=== PATIENT | female | born 1975 | race Caucasian/White ===

== ENCOUNTER 2017-07-15 16:48 | Emergency (ER) | payer SELFPAY ==
--- NOTE | 2017-07-15 | CT_ITS ---
CT head/brain wo con HISTORY: ITS.REASON: SYNCOPE,HEADACHES ORDERING PHYSICIAN: Kayleen Kulkarni MD PATIENT AGE: 42 years COMPARISON: 03/19/2014 TECHNIQUE: Axial images obtained without contrast. Brain and bone windows reviewed. FINDINGS: No midline shift, mass effect, intracranial hemorrhage, hydrocephalus, or extra-axial fluid collection is evident. The calvarium has an unremarkable appearance. No mastoid effusion. No sinus air-fluid levels.. Mild mucosal thickening of the sphenoid sinus noted posteriorly IMPRESSION: No acute intracranial findings.
[2017-07-15 16:49] VITALS: BP 106/69; PULSE 68; RESP 22; TEMP 36.8; O2SAT 93; BMI 22.7
--- NOTE | 2017-07-15 17:01 | XR_ITS ---
XR chest 2V HISTORY: ITS.REASON: SYNCOPE ORDERING PHYSICIAN: Kayleen Kulkarni MD PATIENT AGE: 42 years COMPARISON: 03/04/2017 FINDINGS: The cardiomediastinal silhouette and pulmonary vascularity are within normal limits. The lungs are clear without infiltrates, suspicious nodules, or pleural effusions. There is mild biapical pleural thickening with biapical fibronodular changes which are stable No acute bony abnormalities. IMPRESSION: No change with no acute finding
[2017-07-15 17:14] LABS: Basophils # 0.1 K/mm3 (0-0.2); Basophils % 0.7 % (0.1-2.0); Eosinophils # 0.2 K/mm3 (0.0-0.4); Eosinophils % 2.4 % (0.1-12.0); Hematocrit 42.4 % (37.0-47.0); Hemoglobin 14.1 g/dL (12.2-16.2); Lymphocytes # 3.3 K/mm3 (0.7-4.5); Lymphocytes % 43.2 K/mm3 (10-50); Mean Corpuscular HGB Conc 33.2 g/dL (31.8-35.4); Mean Corpuscular Hemoglobin 31.1 pg (27.0-31.2); Mean Corpuscular Volume 93.6 fl (81-99); Mean Platelet Volume 7.8 fl (7.4-10.4); Monocytes # 0.3 K/mm3 (0.1-1.0); Monocytes % 4.1 % (1.7-9.3); Neutrophils # 3.7 K/mm3 (1.8-7.8); Neutrophils % 49.6 % (37.0-80.0); Platelet Count 298 K/mm3 (142-424); Red Blood Count 4.53 M/mm3 (4.20-5.40); Red Cell Distribution Width 12.6 % (11.5-17.5); White Blood Count 7.5 K/mm3 (4.8-10.8)
[2017-07-15 17:24] LABS: Microscopic, Urine URINE MICROSCOPIC (MICROSCOPIC)
[2017-07-15 17:27] LABS: Appearance,Urine CLEAR (Clear); Bilirubin,Urine Negative (Negative); Blood, Urine TRACE-L (Negative); Color,Urine YELLOW (Yellow); Glucose,Urine (UA) Negative (Negative); Ketones,Urine Negative (Negative); Leukocyte Esterase,Urine TRACE (Negative); Nitrate,Urine Negative (Negative); PH,Urine 6.5 (5.0-8.5); Protein,Urine Negative (Negative); Urobilinogen,Urine 0.2 EU/dl (0.2)
[2017-07-15 17:36] LABS: Alanine Aminotransferase 21 U/L (12-78); Albumin Level 4.5 gm/dL (3.4-5.0); Albumin/Globulin Ratio 1.2 (1.1-1.8); Alkaline Phosphatase 111 U/L (46-116); Anion Gap 10.4 mEq/L (5-15); Aspartate Amino Transferase 12 U/L (15-37); Bilirubin,Total 0.5 mg/dL (0.2-1.0); Blood Urea Nitrogen 9 mg/dL (7-18); Calcium 9.2 mg/dL (8.5-10.1); Carbon Dioxide 27 mmol/L (21.0-32.0); Chloride 104 mmol/L (98-107); Creatinine Clearance Estimated 99 mg/ml (0-300); Creatinine,Serum 0.75 mg/dL (0.55-1.02); Estimated Glomerular Filt Rate > 60 ml/min (>60); GFR (African American) > 60 ML/MIN (>60); Globulin 3.8 gm/dl (1.3-3.2); Glucose 101 mg/dL (74-106); Potassium 3.4 mmoL/L (3.5-5.1); Sodium 138 mmol/L (136-145); Total Protein,Serum 8.3 gm/dL (6.4-8.2); Troponin I < 0.02 ng/ml (0.00-0.06)
[2017-07-15 17:41] LABS: Urine Pregnancy, HCG Qual. Negative (Negative)
--- NOTE | 2017-07-15 18:39 | HMH.EDGENADL ---
ED Disposition Clinical Impression: Cephalgia Disposition: Home, Self-Care Condition on Discharge: Good Instructions: Tension Headache (Alternative Therapy), DI for Muscle Weakness Additional Instructions: Advil, Tylenol as needed, see your family doctor in one to two days for recheck; flu swab negative but you likely have a viral syndrome in addition to your classic headache today. Referrals: Provider,Referral, [Primary Care Provider] - - Critical Care Critical Care Time: No Attestation: On 07/15/17, the high probability of a clinically significant, sudden or life threatening deterioration of the following system(s) required my full and direct attention, intervention and personal management. The time I documented below is in addition to time spent performing reported procedures but includes the following listed in this critical care notation. Medical Decision Making Vital Signs: 07/15/17 16:49 Temperature 98.3 F Temperature Source Oral Pulse Rate [Right Radial] 68 Respiratory Rate 22 Blood Pressure [Right Arm] 106/69 Blood Pressure Mean [Right Arm] 81 Blood Pressure Source [Right Arm] Automatic Cuff Blood Pressure Position [Right Arm] Supine 02 Sat by Pulse Oximetry 93 L Oxygen Delivery Method Room Air - Lab Data Lab results reviewed: Yes: I reviewed the patient's lab results. Lab Results 07/15/17 16:32: Sodium 138, Potassium 3.4 L, Chloride 104, Carbon Dioxide 27, Anion Gap 10.4, BUN 9, Creatinine 0.75, Estimated Creat Clear 99, Estimated GFR > 60, Est GFR ( Amer) > 60, Glucose 101, Calcium 9.2, Total Bilirubin 0.5, AST 12 L, ALT 21, Alkaline Phosphatase 111, Troponin I < 0.02, Total Protein 8.3 H, Albumin 4.5, Globulin 3.8 H, Albumin/Globulin Ratio 1.2 07/15/17 16:32: WBC 7.5, RBC 4.53, Hgb 14.1, Hct 42.4, MCV 93.6, MCH 31.1, MCHC 33.2, RDW 12.6, Plt Count 298, MPV 7.8, Neut % (Auto) 49.6, Lymph % (Auto) 43.2, Wheeler % (Auto) 4.1, Eos % (Auto) 2.4, Baso % (Auto) 0.7, Neut # (Auto) 3.7, Lymph # (Auto) 3.3, Wheeler # (Auto) 0.3, Eos # (Auto) 0.2, Baso # (Auto) 0.1 07/15/17 17:20: Urine Color Yellow, Urine Appearance Clear, Urine pH 6.5, Ur Specific [place] 1.010, Urine Protein Negative, Urine Glucose (UA) Negative, Urine Ketones Negative, Urine Blood Trace-l, Urine Nitrate Negative, Urine Bilirubin Negative, Urine Urobilinogen 0.2, Ur Leukocyte Esterase Trace 07/15/17 17:20: Urine HCG, Qual Negative 07/15/17 18:30: Influenza Type A Ag Negative, Influenza Type B Ag Negative Result diagrams: 07/15/17 16:32 07/15/17 16:32 Orders (Tests/Meds): ED MEDICATIONS Discontinued Medications Generic Name Dose Route Start Last Admin Trade Name Freq PRN Reason Stop Dose Admin Acetaminophen 1,000 mg 07/15/17 19:11 Tylenol 500mg Tablet PO 07/15/17 19:12 ONCE ONE ORDERS Category Date Time Status Urinalysis and Microscopic Stat Lab 07/15/17 17:20 Results 12-lead EKG Request [ECG Request by /Suraj] Stat Y 07/15/17 17:01 Ordered ECG Request by /Suraj Stat Y 07/15/17 18:34 Stop Req - Radiology Data #1 Image(s): Chest Image Reviewed: Yes I reviewed the patient's radiology results, Yes I have reviewed radiologist's interpretation Preliminary Findings: Normal/NAD, No Infiltrates Seen, Normal Lung Inflation Delvin - CT Data CT Scan: Head Time Received: 19:[address] Reviewed: Yes: I have reviewed the patient's CT results, I have viewed the radiologist's interpretation Preliminary Findings: Normal/NAD - ECG Data Tracing #1 NSR 65 no ectopy normal intervals no hypertrophy - Herbert Inquiry Pt receiving controlled substance: No General Adult HPI - General Chief complaint: Weakness Stated complaint: SYNCOPAL,POSSIBLE FLU Time Seen by Provider: 07/15/17 18:39 Mode of Arrival: EMS Limitations: No Limitations Description of Symptoms (Recalled from ER Triage Doc. by RN): HEADACHES AND SYNCOPE; THINKS SHE HAS THE FLU - History of Present Illness HPI narrative:
--- NOTE | 2017-07-15 18:46 | ED_ITS ---
ED Disposition Clinical Impression: Cephalgia Disposition: Home, Self-Care Condition on Discharge: Good Instructions: Tension Headache (Alternative Therapy), DI for Muscle Weakness Additional Instructions: Advil, Tylenol as needed, see your family doctor in one to two days for recheck ; flu swab negative but you likely have a viral syndrome in addition to your classic headache today. Referrals: Provider,Referral, [Primary Care Provider] - - Critical Care Critical Care Time: No Attestation: On 07/15/17, the high probability of a clinically significant, sudden or life threatening deterioration of the following system(s) required my full and direct attention, intervention and personal management. The time I documented below is in addition to time spent performing reported procedures but includes the following listed in this critical care notation. Medical Decision Making Vital Signs: 07/15/17 16:49 Temperature 98.3 F Temperature Source Oral Pulse Rate [Right Radial] 68 Respiratory Rate 22 Blood Pressure [Right Arm] 106/69 Blood Pressure Mean [Right Arm] 81 Blood Pressure Source [Right Arm] Automatic Cuff Blood Pressure Position [Right Arm] Supine 02 Sat by Pulse Oximetry 93 L Oxygen Delivery Method Room Air - Lab Data Lab results reviewed: Yes: I reviewed the patient's lab results. Lab Results 07/15/17 16:32: Sodium 138, Potassium 3.4 L, Chloride 104, Carbon Dioxide 27, Anion Gap 10.4, BUN 9, Creatinine 0.75, Estimated Creat Clear 99, Estimated GFR > 60, Est GFR ( Amer) > 60, Glucose 101, Calcium 9.2, Total Bilirubin 0.5 , AST 12 L, ALT 21, Alkaline Phosphatase 111, Troponin I < 0.02, Total Protein 8.3 H, Albumin 4.5, Globulin 3.8 H, Albumin/Globulin Ratio 1.2 07/15/17 16:32: WBC 7.5, RBC 4.53, Hgb 14.1, Hct 42.4, MCV 93.6, MCH 31.1, MCHC 33.2, RDW 12.6, Plt Count 298, MPV 7.8, Neut % (Auto) 49.6, Lymph % (Auto) 43.2 , [place] % (Auto) 4.1, Eos % (Auto) 2.4, Baso % (Auto) 0.7, Neut # (Auto) 3.7, Lymph # (Auto) 3.3, [place] # (Auto) 0.3, Eos # (Auto) 0.2, Baso # (Auto) 0.1 07/15/17 17:20: Urine Color Yellow, Urine Appearance Clear, Urine pH 6.5, Ur Specific [place] 1.010, Urine Protein Negative, Urine Glucose (UA) Negative, Urine Ketones Negative, Urine Blood Trace-l, Urine Nitrate Negative, Urine Bilirubin Negative, Urine Urobilinogen 0.2, Ur Leukocyte Esterase Trace 07/15/17 17:20: Urine HCG, Qual Negative 07/15/17 18:30: Influenza Type A Ag Negative, Influenza Type B Ag Negative Result diagrams: 07/15/17 16:32 07/15/17 16:32 Orders (Tests/Meds): ED MEDICATIONS Discontinued Medications Generic Name Dose Route Start Last Admin Trade Name Freq PRN Reason Stop Dose Admin Acetaminophen 1,000 mg 07/15/17 19:11 Tylenol 500mg Tablet PO 07/15/17 19:12 ONCE ONE ORDERS Category Date Time Status Urinalysis and Microscopic Stat Lab 07/15/17 17:20 Results 12-lead EKG Request [ECG Request by /Suraj] Stat Y 07/15/17 17:01 Ordered ECG Request by /Suraj Stat Y 07/15/17 18:34 Stop Req - Radiology Data #1 Image(s): Chest Image Reviewed: Yes I reviewed the patient's radiology results, Yes I have reviewed radiologist's interpretation Preliminary Findings: Normal/NAD, No Infiltrates Seen, Normal Lung Inflation Delvin - CT Data CT Scan: Head Time Received: 19:[address] Reviewed: Yes: I have reviewed the judi
[2017-07-15 19:15] VITALS: BP 110/56; PULSE 85; TEMP 37
[2017-07-15 19:26] LABS: Bacteria,Urine 2+ /lpf; Mucus,Urine 4+ /lpf; WBC,Urine Occasional #/hpf (0-3)
== END 2017-07-15 19:21 | disposition home or self-care (01) ==
PROVIDERS: Emergency Provider Emergency Medicine; Family Provider Internal Medicine Adolescent Medicine
DX: R51 Headache (principal); F17.210 Nicotine dependence, cigarettes, uncomplicated; Z88.6 Allergy status to analgesic agent
CPT/HCPCS: 70450; 71046; 80053; 81001; 81025; 84484; 85025; 87086; 87275; 87276; 93005; 93041; 99283

== ENCOUNTER 2021-03-16 10:19 | Emergency (ER) | payer OTHER, SELFPAY ==
[2021-03-16 10:50] VITALS: BP 110/74; PULSE 77; RESP 18; TEMP 36.8; O2SAT 99; BMI 25.4
--- NOTE | 2021-03-16 11:08 | HMH.EDUTC ---
[facility] [place] Clinical Impression: COVID-19 virus test result unknown Upper respiratory infection Qualifiers: URI type: unspecified viral URI Qualified Code(s): J06.9 - Acute upper respiratory infection, unspecified Disposition: Home, Self-Care Condition on Discharge: Good Instructions: Preventing the Spread of Coronavirus Discharge Instructions, DI for COVID-19 (Suspected or Confirmed ), DI for Viral Upper Respiratory Infection -- Adult Additional Instructions: covid swab was sent to lab, call later today for results. self isolate until test results are known to be negative No sign of a bacterial infection. Likely viral. Viruses can take 7-14 days to run their course. Nasal saline and bulb syringe or nose Meldoy to remove nasal drainage to help with nasal congestion. Hard to eat, drink, sleep with nasal congestion so important to keep this cleaned out. Monitor temp. Tylenol or Motrin as needed for pain or fever Encourage fluids, water, Gatorade, Powerade, Pedialyte if infant/toddler/child Warm salt water gargles Warm fluids Sore throat lozenges Sleep elevated Humidifier/vaporizer Follow-up immediately for new or worsening symptoms or no noticeable improvement over the next 48-72 hours. Referrals: Neel Gale MD [Primary Care Provider] - Time of Disposition: 11:14 Medical Decision Making - Herbert Inquiry Pt receiving controlled substance: No Vital Signs: 03/16/21 10:50 Temperature 98.3 F Temperature Source Oral Pulse Rate [Right Brachial] 77 Respiratory Rate 18 Blood Pressure [Right Arm] 110/74 Blood Pressure Mean [Right Arm] 86 Blood Pressure Source [Right Arm] Automatic Cuff Blood Pressure Position [Right Arm] Sitting 02 Sat by Pulse Oximetry 99 Oxygen Delivery Method Room Air Orders (Tests/Meds): ORDERS Category Date Time Status Covid-19 Nasal PCR ([facility]) Routine Lab 03/16/21 10:48 [place] [facility] [place] - General Chief complaint: [facility] Stated complaint: covid symtoms Time Seen by Provider: 03/16/21 11:08 Mode of Arrival: Ambulatory Source of Information: Patient Limitations: No Limitations Description of Symptoms (Recalled from Triage Doc. by RN): PATIENT C/O BODY ACHES, SNEEZING, COUGH, AND LOSS OF TASTE AND SMELL SINCE WEDNESDAY. REQUESTING COVID TEST HEENT Symptoms (Recalled from RN notes): Yes Resp Symptoms (Recalled from RN notes): Yes Skin Symptoms (Recalled from RN notes): No MS Symptoms (Recalled from RN notes): No Functional Status (Recalled from RN notes): WNL - History of Present Illness Provider Complaint: 46 yr old female presnets for cough,sneezing,loss or taste and smell since . request covid test - Related Data Previous Rx's Medication Instructions Recorded Azithromycin [Z-Rasheed 250mg Tab*] 250 mg PO UD DOSE PK #6 tab 06/19/19 Brompheniramine/Pseudoephed/Dm 5 ml PO Q6HP PRN #240 syrup 06/19/19 [Bromfed Dm Cough Syrup] methylPREDNISolone [Medrol] 4 mg PO DIRECTED 6 Days #21 06/19/19 tab.ds.pk Allergies Allergy/AdvReac Type Severity Reaction Status Date / Time codeine [CODEINE] Allergy Mild NA-NAUSEA Verified 10/04/18 13:45 povidone-iodine Allergy Mild I-RASH Verified 10/04/18 13:45 [From BETADINE] NSAIDS (Non-Steroidal Allergy Unknown AGGRAVATES Verified 10/04/18 13:45 Anti-Inflamma STOMACH [NSAIDS (NON-STEROIDAL ULCER ANTI-INFLAMMA] - Worker's Comp Is this a Worker's Comp case?: No [facility] History - Hepatitis A Screen Drug use history?: No High risk sexual behaviors?: No History of sexually transmitted infection?: No Currently employed?: No Childcare worker?: No Do you have indoor plumbing?: Yes Do you have electricity?: Yes Attestation statement:: This patient has been screened for Hepatitis A risk factors. I have reviewed the patient's past medical history: Yes Medical History: Denies:: Cancer, Diabetes Mellitus Type 1, Diabetes Mellitus Type 2, MRSA Amputation: No Fractures: N
[2021-03-16 11:21] VITALS: BP 110/74; PULSE 77; RESP 18; TEMP 36.8; O2SAT 99
--- NOTE | 2021-03-17 09:16 | PC.NURSE ---
PATIENT NOTIFIED OF POSITIVE COVID TEST AT THIS TIME
== END 2021-03-16 11:25 | disposition home or self-care (01) ==
PROVIDERS: Emergency Provider Nurse Practitioner Family; PCP Internal Medicine Adolescent Medicine
DX: U07.1 COVID-19 (principal)
CPT/HCPCS: 99202; G0463; U0003

== ENCOUNTER 2021-04-23 23:58 | Emergency (ER) | payer OTHER, SELFPAY ==
[2021-04-24] VITALS: BP 132/62; PULSE 84; RESP 20; TEMP 36.9; O2SAT 100; BMI 22.7
--- NOTE | 2021-04-24 00:20 | XR_ITS ---
PROCEDURE INFORMATION: Exam: XR Left Foot Exam date and time: 04/24/2021 12:20 AM Age: 46 years old Clinical indication: Injury or trauma; Blunt trauma; Foot; Left; Patient HX: Fall, pain, swelling per PT TECHNIQUE: Imaging protocol: XR Left foot. Views: 3 or more views. COMPARISON: No relevant prior studies available. FINDINGS: Bones/joints: Normal. Incidental os naviculare. Soft tissues: Normal. IMPRESSION: No acute findings.
--- NOTE | 2021-04-24 00:20 | XR_ITS ---
PROCEDURE INFORMATION: Exam: XR Left Ankle Exam date and time: 04/24/2021 12:20 AM Age: 46 years old Clinical indication: Injury or trauma; Blunt trauma; Ankle; Left; Patient HX: Fall, pain, swelling per PT TECHNIQUE: Imaging protocol: XR Left ankle. Views: 3 or more views. COMPARISON: CR XR FOOT LT MIN 3V 04/24/2021 12:19 AM FINDINGS: Bones/joints: Normal. Soft tissues: Normal. IMPRESSION: No acute findings.
--- NOTE | 2021-04-24 01:26 | HMH.EDLOEX ---
ED Disposition Clinical Impression: Left ankle sprain Qualifiers: Encounter type: initial encounter Involved ligament of ankle: unspecified ligament Qualified Code(s): S93.402A - Sprain of unspecified ligament of left ankle, initial encounter Sprain of foot, left Qualifiers: Encounter type: initial encounter Qualified Code(s): S93.602A - Unspecified sprain of left foot, initial encounter Disposition: Home, Self-Care Condition on Discharge: Good Instructions: DI for Ankle Sprain Additional Instructions: ice and limited wt bearing and call dr padilla for follow up Referrals: Neel Gale MD [Primary Care Provider] - Anny Padilla DPM [Staff Physician] - - Critical Care Critical Care Time: No Attestation: On 04/23/21, the high probability of a clinically significant, sudden or life threatening deterioration of the following system(s) required my full and direct attention, intervention and personal management. The time I documented below is in addition to time spent performing reported procedures but includes the following listed in this critical care notation. Medical Decision Making - Medical Records Medical records reviewed: Yes: I reviewed the patient's medical records. - Herbert Inquiry Pt receiving controlled substance: No Vital Signs: 04/24/21 00:00 Temperature 98.5 F Temperature Source Oral Pulse Rate [Right] 84 Respiratory Rate 20 Blood Pressure [Right Arm] 132/62 Blood Pressure Mean [Right Arm] 85 Blood Pressure Source [Right Arm] Automatic Cuff 02 Sat by Pulse Oximetry 100 Oxygen Delivery Method Room Air - Lab Data Lab results reviewed: Yes: I reviewed the patient's lab results. Orders (Tests/Meds): ED MEDICATIONS Discontinued Medications Generic Name Dose Route Start Last Admin Trade Name Faustino PRN Reason Stop Dose Admin Acetaminophen 650 mg 04/24/21 00:22 04/24/21 00:26 Acetaminophen 325mg Tab PO 04/24/21 00:23 650 mg ONCE ONE Administration ORDERS Category Date Time Status Ankle XR - Left minimum 3 Views [XR ankle LT min 3V] Exams 04/24/21 00:20 Taken Stat XR foot LT min 3V Stat Exams 04/24/21 00:20 Taken - Radiology Data #1 Image(s): Ankle, Foot/Toes Image Reviewed: Yes I reviewed the patient's radiology image, Yes I have reviewed radiologist's interpretation Preliminary Findings: No Fracture Seen Medical Decision Narrative: will ice and have pt see dr padilla for follow up and workman comp form completed Lower Extremity Injury HPI - General Chief Complaint: Extremity Injury, Lower Stated Complaint: AO10/13@2000, fell injured left foot/ankle Time Seen by Provider: 04/24/21 00:30 Mode of Arrival: Family Vehicle Source of Information: Patient, Medical Record Limitations: No Limitations Description of Symptoms (Recalled from ER Triage Doc. by RN): Pt slipped on a wet floor at work tonight ~ 2000. She states her left ankle twisted and then her left foot went out to her side. The pain has worsened since the injury and now pt is barely able to put weight on it. Slight swelling and mild redness to anterior foot. Pt has not had tylenol/motrin or iced foot. IC ENGINEER < 3 sec, peripheral pulse 2+. - History of Present Illness HPI Narrative: slipped at work with acute lt foot and ankle injury with pain and swelling MD complaint: ankle injury, foot injury Onset (ago): hour(s) Injury: Left: ankle, foot Type of Injury: unknown Place: work Severity: moderate Relieving factors: NSAID Exacerbating factors: weight bearing Context: walking Associated symptoms: snap/pop sensation, swelling, unable to bear weight Other symptoms: none Treatments prior to arrival: cold therapy, NSAIDS - Related Data Home Medications Medication Instructions Recorded Confirmed No Known Home Medications 04/24/21 04/24/21 Allergies Allergy/AdvReac Type Severity Reaction Status Date / Time codeine [CODEINE] Allergy Mild NA-NAUSEA Verified 10/04/18 13:
[2021-04-24 01:41] VITALS: BP 99/58; PULSE 72; RESP 16; TEMP 36.8; O2SAT 98
== END 2021-04-24 01:54 | disposition home or self-care (01) ==
PROVIDERS: Emergency Provider Emergency Medicine; PCP Internal Medicine Adolescent Medicine
DX: S93.402A Sprain of unspecified ligament of left ankle, initial encounter (principal); S93.602A Unspecified sprain of left foot, initial encounter; W01.0XXA Fall on same level from slipping, tripping and stumbling without subsequent striking against object, initial encounter; Y92.69 Other specified industrial and construction area as the place of occurrence of the external cause; Y99.0 Civilian activity done for income or pay; F17.210 Nicotine dependence, cigarettes, uncomplicated
CPT/HCPCS: 73610; 73630; 99283

== ENCOUNTER 2022-06-02 11:15 | Emergency (ER) | payer OTHER, SELFPAY ==
[2022-06-02 12:15] VITALS: BP 148/69; PULSE 84; RESP 18; TEMP 36.6; O2SAT 97; BMI 26.6
--- NOTE | 2022-06-02 12:23 | EXP.UTC ---
Discharge Plan Disposition Patient Disposition: Home, Self-Care Condition: Good Prescriptions Prescriptions: New benzonatate 100 mg capsule 100 mg PO TID PRN (Reason: cough) Qty: 30 0RF oseltamivir [Tamiflu] 75 mg capsule 75 mg PO Q12H 5 Days Qty: 10 0RF ondansetron 4 mg tablet,disintegrating 4 mg PO Q8H PRN (Reason: nausea and vomiting) Qty: 10 0RF No Action meloxicam 7.5 mg tablet 7.5 mg PO DAILY 30 Days Qty: 30 2RF Referrals Follow up/Referrals: Neel Gale MD [Primary Care Provider] - See instructions Activity Restrictions/Add. Instructions Additional Instructions/Restrictions: Start Tamiflu today if you are going to take it. Discussed risk and possible benefits. Lots of rest Increase Fluids water, Gatorade, powerade, pedialyte,if infant/toddler/child Alternate Tylenol and / or ibuprofen as discussed for fever, aches, chills Follow up IMMEDIATELY with your family doctor for new or worsening Symptoms OR no noticeable improvement over the next 48-72 hours, 911 for difficulty or breathing You or your child area contagious until no fever, aches, chills for 24 hours with medication for symptoms Help Prevent the spread of influenza: ?Wash your hands often. Use soap and water. Wash your hands after you use the bathroom, change a child's diapers, or sneeze. Wash your hands before you prepare or eat food. Use gel hand cleanser that has 60% alcohol, when soap and water are not available. Do not touch your eyes, nose, or mouth unless you have washed your hands first. Cover your mouth when you sneeze or cough. Cough into a tissue or the bend of your arm. If you use a tissue, throw it away immediately and wash your hands. Clean shared items with a germ-killing cocoa bean cleaner. Clean table surfaces, doorknobs, and light switches. Do not share towels, silverware, and dishes with people who are sick. Wash bed sheets, towels, silverware, and dishes with soap and water. Wear a mask over your mouth and nose if you are sick. The face mask may help protect others from becoming infected with the flu. Wear the mask when in common areas of your home or if you seek care with a healthcare provider. Stay away from others if you are sick. Stay at home until 24 hours after your fever and symptoms are gone. Clinical Impressions Clinical Impression: Flu-like symptoms Instructions Patient Instructions: DI for Influenza -- Adult, Influenza, DI for Vomiting -- Adult, DI for Viral Syndrome Discharge ED Provider: Ayana Anna Helga [facility] HPI General Stated complaint: CALLAWAY, body aches, vomiting Time Seen by Provider: 06/02/22 12:23 History of Present Illness Provider Complaint: Patient states that she hasnt been feeling well today States that she has been having body aches, chills, headache, nausea and vomiting State that she has continued to feel bad throughout the day and now her grandchild is sick too so she came in to get checked out Related Data Previous Rx's Medication Instructions Recorded meloxicam 7.5 mg tablet 7.5 mg PO DAILY ankle pain 30 days 04/28/21 #30 tabs benzonatate 100 mg capsule 100 mg PO TID PRN cough #30 caps 06/02/22 ondansetron 4 mg disintegrating 4 mg PO Q8H PRN nausea and 06/02/22 tablet vomiting #10 tabs oseltamivir 75 mg capsule (Tamiflu) 75 mg PO Q12H 5 days #10 caps 06/02/22 Allergies Allergy/AdvReac Type Severity Reaction Status Date / Time codeine [CODEINE] Allergy Mild NA-NAUSEA Verified 05/19/21 08:49 povidone-iodine Allergy Mild I-RASH Verified 05/19/21 08:49 [From BETADINE] NSAIDS (Non-Steroidal Allergy Unknown AGGRAVATES Verified 05/19/21 08:49 Anti-Inflamma STOMACH [NSAIDS (NON-STEROIDAL ULCER ANTI-INFLAMMA] [facility] Medical History (Updated 06/02/22 @ 12:53 by Ayana Anna, [employer]) Anxiety COPD (
[2022-06-02 12:43] LABS: UTC Influenza A Antigen Negative (Negative); UTC Influenza B Antigen Negative (Negative); UTC Strep Screen (Rapid) Negative (Negative)
[2022-06-02 12:56] VITALS: BP 148/69; PULSE 84; RESP 18; TEMP 36.6; O2SAT 97
== END 2022-06-02 13:02 | disposition home or self-care (01) ==
PROVIDERS: Emergency Provider Nurse Practitioner; PCP Internal Medicine Adolescent Medicine
DX: J02.9 Acute pharyngitis, unspecified (principal); R11.2 Nausea with vomiting, unspecified; R05.9 Cough, unspecified; R09.81 Nasal congestion; M79.10 Myalgia, unspecified site; K21.9 Gastro-esophageal reflux disease without esophagitis; G43.909 Migraine, unspecified, not intractable, without status migrainosus; J44.9 Chronic obstructive pulmonary disease, unspecified; F32.A Depression, unspecified; F41.9 Anxiety disorder, unspecified; F17.210 Nicotine dependence, cigarettes, uncomplicated; Z88.5 Allergy status to narcotic agent; Z88.6 Allergy status to analgesic agent; Z88.8 Allergy status to other drugs, medicaments and biological substances; Z87.440 Personal history of urinary (tract) infections
CPT/HCPCS: 87804; 87880; 99213; G0463

== ENCOUNTER 2022-06-30 16:17 | Emergency (ER) | payer OTHER, SELFPAY ==
[2022-06-30 16:18] VITALS: BP 111/70; PULSE 74; RESP 18; TEMP 36.7; O2SAT 97; BMI 25.9
--- NOTE | 2022-06-30 16:45 | XR_ITS ---
PROCEDURE INFORMATION: Exam: XR Left Ribs with PA Chest Exam date and time: 06/30/2022 4:55 PM Age: 47 years old Clinical indication: Other: Left sided rib pain; Additional info: Chest pain, felt pop in ribs on Wednesday, SOA, pain increases when taking a deep breath TECHNIQUE: Imaging protocol: Radiologic exam of the Left ribs with PA chest. Views: 3 views COMPARISON: CR XR RIBS LT MIN 3V W CXR1V 04/06/2019 3:59 PM FINDINGS: Lungs: Unremarkable. No consolidation. Pleural spaces: Unremarkable. No pleural effusion. No pneumothorax. Heart/Mediastinum: Unremarkable. No cardiomegaly. Bones/joints: Unremarkable. IMPRESSION: No acute findings.
--- NOTE | 2022-06-30 17:07 | HMH.EDGENADL ---
Discharge Plan Disposition Patient Disposition: Home, Self-Care Condition: Good Prescriptions Prescriptions: New lidocaine [Lidoderm] 5 % adhesive patch,medicated 1 patch topical DAILY Qty: 15 0RF Rx Instructions: leave on most painful area for up to 12 hrs methocarbamol 500 mg tablet 500 mg PO Q8H PRN (Reason: pain) Qty: 20 0RF No Action meloxicam 7.5 mg tablet 7.5 mg PO DAILY 30 Days Qty: 30 2RF benzonatate 100 mg capsule 100 mg PO TID PRN (Reason: cough) Qty: 30 0RF oseltamivir [Tamiflu] 75 mg capsule 75 mg PO Q12H 5 Days Qty: 10 0RF ondansetron 4 mg tablet,disintegrating 4 mg PO Q8H PRN (Reason: nausea and vomiting) Qty: 10 0RF Referrals Follow up/Referrals: Neel Gale MD [Primary Care Provider] - See instructions Activity Restrictions/Add. Instructions Additional Instructions/Restrictions: You were evaluated in the emergency department today for chest wall pain. At this time, there are no fractures or broken bones on x-ray. Please take Tylenol at home as needed for pain. We are also providing you with a prescription for lidocaine patches and a muscle relaxer to take as needed. Follow-up with your primary care provider over the next 3 days. Return to the emergency department for any new or worsening symptoms. Clinical Impressions Clinical Impression: Left-sided chest wall pain Contusion of rib on left side Qualifiers: Encounter type: initial encounter Qualified Code(s): S20.212A - Contusion of left front wall of thorax, initial encounter Instructions Patient Instructions: DI for Acute Pain -- Adult Discharge ED Provider: Blanca Iqbal General Adult HPI General Chief complaint: PAIN Stated complaint: left side rib pain Time Seen by Provider: 06/30/22 16:30 Mode of Arrival: Ambulatory Source of Information: Patient Limitations: No Limitations Description of Symptoms (Recalled from ER Triage Doc. by RN): c/o left rib pain since Wednesday. States someone gave her a big hug on Wednesday and she heard a pop at that time and the pain has gotten worse. History of Present Illness HPI narrative: This patient is a 47-year-old female presenting to the emergency department for evaluation of left rib pain. She states that someone hugged her really tight on Wednesday, and she felt a pop on the left side of her ribs and has had significant pain since. She states that it is moderate in intensity and is worse with deep breaths. Nothing seems to make it better. She has tried Tylenol at home without significant improvement. She denies any other concerns at this time. She is otherwise been well. Related Data Previous Rx's Medication Instructions Recorded meloxicam 7.5 mg tablet 7.5 mg PO DAILY ankle pain 30 days 04/28/21 #30 tabs benzonatate 100 mg capsule 100 mg PO TID PRN cough #30 caps 06/02/22 ondansetron 4 mg disintegrating 4 mg PO Q8H PRN nausea and 06/02/22 tablet vomiting #10 tabs oseltamivir 75 mg capsule (Tamiflu) 75 mg PO Q12H 5 days #10 caps 06/02/22 lidocaine 5 % topical patch 1 patch topical DAILY #15 ea 06/30/22 (Lidoderm) methocarbamol 500 mg tablet 500 mg PO Q8H PRN pain #20 tabs 06/30/22 Allergies Allergy/AdvReac Type Severity Reaction Status Date / Time codeine [CODEINE] Allergy Mild NA-NAUSEA Verified 05/19/21 08:49 povidone-iodine Allergy Mild I-RASH Verified 05/19/21 08:49 [From BETADINE] NSAIDS (Non-Steroidal Allergy Unknown AGGRAVATES Verified 05/19/21 08:49 Anti-Inflamma STOMACH [NSAIDS (NON-STEROIDAL ULCER ANTI-INFLAMMA] [facility] Disclaimer: The information contained in this section may have been updated after the patient was seen, as this information can be updated by other users. Medical History Anxiety COPD (chronic obstructive pulmonary disease) Depression History of gastroesophageal reflux (GERD) Migraine Urinary tract infection Surgical Hi
[2022-06-30 18:11] VITALS: BP 114/69; PULSE 66; RESP 18; TEMP 36.7; O2SAT 99
== END 2022-06-30 18:13 | disposition home or self-care (01) ==
PROVIDERS: Emergency Provider Emergency Medicine; PCP Internal Medicine Adolescent Medicine
DX: R21 Rash and other nonspecific skin eruption; R11.2 Nausea with vomiting, unspecified; K21.9 Gastro-esophageal reflux disease without esophagitis; G40.909 Epilepsy, unspecified, not intractable, without status epilepticus; K25.9 Gastric ulcer, unspecified as acute or chronic, without hemorrhage or perforation; J44.9 Chronic obstructive pulmonary disease, unspecified; F32.A Depression, unspecified; F41.9 Anxiety disorder, unspecified; F17.210 Nicotine dependence, cigarettes, uncomplicated; Z88.5 Allergy status to narcotic agent; Z88.6 Allergy status to analgesic agent; Z88.8 Allergy status to other drugs, medicaments and biological substances; Z79.899 Other long term (current) drug therapy
CPT/HCPCS: 71101; 99283

== ENCOUNTER → 2022-11-04 08:22 | Outpatient (CLI) | payer OTHER, SELFPAY ==
--- NOTE | 2022-11-04 08:27 | MM_ITS ---
PROCEDURE INFORMATION: Exam: Bilateral Screening 3D Mammography Exam date and time: 11/04/2022 8:26 AM Age: 47 years old Clinical indication: Screening examination TECHNIQUE: Imaging protocol: Bilateral Screening tomosynthesis and 2D mammography including computer-aided detection (CAD) when performed. COMPARISON: MG DMSB DIG MAMM-SCREEN MIRA W/CAD 08/24/2016 8:59 AM FINDINGS: MAMMOGRAPHY: Breast composition: There are scattered areas of fibroglandular density. Mass: None. Architectural distortion: None. Calcifications: No suspicious calcifications. Asymmetric density: None. Skin thickening: None. Axillary adenopathy: None. IMPRESSION: No mammographic evidence of malignancy. Annual screening is recommended unless otherwise clinically indicated. ASSESSMENT: BI-RADS Category 1: Negative
== END ==
PROVIDERS: PCP Internal Medicine Adolescent Medicine; Visit Provider Nurse Practitioner Family
DX: Z12.31 Encounter for screening mammogram for malignant neoplasm of breast (principal)
CPT/HCPCS: 77063; 77067

== ENCOUNTER 2022-12-29 15:30 | Outpatient (RCR) | payer OTHER, SELFPAY ==
--- NOTE | 2022-12-08 15:28 | HMH.PTOPEV ---
PT Outpatient Evaluation Rehab PT Outpatient Evaluation Start: 12/08/22 15:20 Freq: Status: Active Protocol: Document 12/08/22 15:20 WILLIAMS (Rec: 12/08/22 15:28 WILLIAMS [id number]) E-signed By Brent Celestin, PT Outpatient Therapy Subjective History Subjective History Pt reports lifting injury to low back occurred in late October. Pt reports immediate onset LBP after picking up heavy cat crate, followed by severe left LE radicular from hip to foot. Pt reports both LBP and LLE s/s have improved since initial injury. PMH: chronic LBP Chief Complaint Pain,Stiff,Weakness Symptom Type Ache,Sharp,Dull Symptoms Relieved By Rest/Positioning,Heat,OTC Meds ,Prescription Meds Symptoms Aggravated By Standing,Bending/Stooping, Physical Activity,Twisting, Walking,Lifting Prior Functional Limitations None Current Functional Limitations Lifting,Housework,Standing, Walking,Bending/Stooping Symptom Description Constant but Variable Level of pain today (0-10) 5 Pain scale - at its best (0-10) 2 Pain scale - at its worst (0-10) 7 Lumbopelvic Eval Posture Thoracic Spine Posture Standing Position Neutral Lumbar Spine Posture Standing Position Increased Lordosis Assistive device Assistive Devices None / NA Gait Observation General Gait Pattern Observation Antalgic Gait Palapation tenderness right lumbar spinal tenderness Yes: 2/4 paraspinal tenderness Yes: 2-3/4 buttock tenderness Yes: 2/4 Lumbar/Sacral Palpation Findings Tenderness,Trigger Point, Muscle Guarding left lumbar spinal tenderness Yes: 3/4 paraspinal tenderness Yes: 3/4 buttock tenderness Yes: 3/4 Lumbar/Sacral Palpation Findings Tenderness,Trigger Point, Muscle Guarding Accessory Movement L-spine Vertebrae Accessory Movements Central P/A Stewardson that Elicit Symptoms L2 bilateral L3 bilateral L4 bilateral L5 bilateral S1 bilateral Range of Motion Lumbar Spine Active Flexion Range of 0-40 Motion (degrees) Lumbar Spine Active Extension Range of 0-5 Motion (degrees) Left Lumbar Spine Lateral Flexion Active 0-20 Range of Motion (degrees) Right Lumba
== END 2022-12-29 15:35 | disposition home or self-care (01) ==
LOC: PT 15:30
PROVIDERS: PCP Internal Medicine Adolescent Medicine; Visit Provider Internal Medicine Adolescent Medicine
DX: M54.50 Low back pain, unspecified (principal); M54.42 Lumbago with sciatica, left side; M54.41 Lumbago with sciatica, right side
CPT/HCPCS: 97010; 97012; 97014; 97035; 97110; 97140; 97163; 97760; G0283

== ENCOUNTER 2022-12-30 09:22 | Day surgery (SDC) | payer OTHER, SELFPAY ==
[2022-12-21 13:58] VITALS: BMI 26.6
[2022-12-30] VITALS (7 sets, daily range): BP systolic 86–106; BP diastolic 57–71; PULSE 62–94; RESP 16–18; TEMP 36.1–36.3; O2SAT 93–99
--- NOTE | 2022-12-30 10:32 | EXP.ANES.CKL ---
[facility] Disclaimer: The information contained in this section may have been updated after the patient was seen, as this information can be updated by other users. Medical History Anxiety COPD (chronic obstructive pulmonary disease) Depression History of deviated nasal septum History of gastroesophageal reflux (GERD) Migraine Urinary tract infection Surgical History History of hysterectomy History of tubal ligation Hx of bladder repair surgery Hx of vaginal surgery Family History Other Family history of cancer Family history of diabetes mellitus type II Family history of hyperlipidemia Family history of hypertension Social History Smoking Status: Light tobacco smoker tobacco type: cigarettes packs per day: 1 pack-years: 20 and e-cigarettes alcohol intake: current substance use type: marijuana current occupational status: employed Travel in the last 8 weeks: None household members: family housing: house lives independently: No marital status: education level: high school service: No caffeine: Yes special michelle needs: No do you feel safe at home: Yes victim of physical abuse: No victim of emotional abuse: No victim of sexual abuse: No would you like helpful sources: No [facility] Anesthesia Checklist Patient Identification Patient Identification: Verbal (Name & ) Structural Data Admitted From: Home Planned Operative Procedure/s: colonoscopy Consent for Planned Operative Procedure(s) Verified: Yes Airway Assessment C-Spine Mobility Assessed: Yes TMJ Mobility Assessed: Yes Dentition: Edentulous Neurological Assessment Level of Consciousness: Awake, Alert and Appropriate Anesthesia Plan Anesthesia Risk discussed: Yes Anesthesia Plan: Verified ASA Class: II Anesthesia Type: MAC
--- NOTE | 2022-12-30 10:59 | HMH.SCOPE ---
Procedure: Date: 12/30/22 Patient Date of :: 1975 Procedure Performed:: Colonoscopy Indications:: Screening Performing Provider:: Saul Jeffries MD Referring Provider:: Ty Cardoza MD Sedation:: See RN records Procedure:: After placing the patient in the left lateral decubitus position, the colonoscopy was gently inserted into the rectum and under direct visualization advanced to the cecum which was identified by transillumination in the right lower quadrant, identification of the ileocecal valve, appendiceal orifice, and cecal strap. Color, texture, mucosa, and anatomy of the colon were carefully examined with the scope. Findings:: Anal canal: normal Rectum: Three sessile polyps less than 5 mm in size. Removed with cold forceps Sigmoid colon: sessile polyp 6 mm in size. Removed with cold snare polypectomy. Polyp 3 mm in size. Removed with cold forceps Descending colon: normal without polyps or inflammatory changes Splenic flexure: normal Transverse colon: normal without polyps or inflammatory changes Hepatic flexure: normal Ascending colon: normal without polyps or inflammatory changes Cecum: Polyp 3 mm in size. Removed with cold forcepsl Terminal ileum: not visualized Impression: Multiple small polyps Recommendations:: Await pathology results Repeat colonoscopy in 3 years Complications:: None Estimated blood obtained (mL): 0 Colonoscopy Component Colonoscopy Component Was a colonoscopy performed during today's procedure?: Yes Recommended follow up colonoscopy of at least 10 years?: Yes
== END 2022-12-30 11:40 | disposition home or self-care (01) ==
PROVIDERS: PCP Internal Medicine Adolescent Medicine; Visit Provider Internal Medicine
PROC: 0DJD8ZZ Inspection of Lower Intestinal Tract, Via Natural or Artificial Opening Endoscopic (ICD-10-PCS; CPT 45378; principal; 2022-12-30 10:30)
DX: Z12.11 Encounter for screening for malignant neoplasm of colon (principal); D12.0 Benign neoplasm of cecum; K62.1 Rectal polyp
CPT/HCPCS: 45380; 45385

== ENCOUNTER → 2023-03-22 15:29 | Outpatient (CLI) | payer OTHER, SELFPAY ==
--- NOTE | 2023-03-22 15:33 | XR_ITS ---
FINAL REPORT CLINICAL HISTORY: neck pain FINDINGS: CERVICAL SPINE COMPLETE/FLEXION & EXT Seven views were obtained. There is no acute fracture. There are mild degenerative changes. There is no malalignment. IMPRESSION: No acute process. Reviewed, Interpreted and Dictated by Melquiades Dimas III, MD Transcribed by oDry Cr Authenticated and [facility]
[2023-03-22 18:28] LABS: Vitamin B12 501 pg/mL (239-931)
[2023-03-22 18:29] LABS: Folate > 20.00 ng/mL
== END ==
PROVIDERS: PCP Internal Medicine Adolescent Medicine; Visit Provider Nurse Practitioner Family
DX: M54.2 Cervicalgia (principal); G89.29 Other chronic pain; R51.9 Headache, unspecified; F11.11 Opioid abuse, in remission; F12.20 Cannabis dependence, uncomplicated; F14.11 Cocaine abuse, in remission; R29.2 Abnormal reflex
CPT/HCPCS: 36415; 72052; 82607; 82746

== ENCOUNTER → 2023-04-05 12:29 | Outpatient (CLI) | payer OTHER, SELFPAY ==
[2023-04-05 12:55] LABS: Blood Urea Nitrogen 8 mg/dl (7-17); Estimated Glomerular Filt Rate 76 ml/min (>60); GFR (African American) 92 ML/MIN (>60)
--- NOTE | 2023-04-05 13:03 | MR_ITS ---
FINAL REPORT TECHNIQUE: Imaging of the intracerebral vasculature was obtained without intravenous contrast using [id number] imaging. CLINICAL HISTORY: headaches x1year FINDINGS: Flow related signal intensity within the intracerebral vasculature is preserved. There is no evidence of aneurysm, significant stenosis or AVM. IMPRESSION: Unremarkable MR angiogram of the brain without contrast. Reviewed, Interpreted and Dictated by Sherry White MD Transcribed by Lyndsay Desai Authenticated and [facility]
--- NOTE | 2023-04-05 13:03 | MR_ITS ---
FINAL REPORT TECHNIQUE: Multiplanar and multisequence imaging of the brain was obtained before and after contrast administration. CLINICAL HISTORY: headaches FINDINGS: The gyri and sulci are within normal limits for age. There is no mass effect or midline shift. Signal intensity is normal. No hydrocephalus. The cerebellum and brainstem have an unremarkable appearance. There are no areas of restricted diffusion on diffusion weighted images to suggest acute infarct. There is a mucous retention cyst or polyp in the sphenoid sinus. Soft tissues are without acute abnormality. No pathologic contrast enhancement is identified. IMPRESSION: No acute intracranial abnormality and no pathologic contrast enhancement. Reviewed, Interpreted and Dictated by Sherry White MD Transcribed by Lyndsay Desai Authenticated and [facility]
== END ==
PROVIDERS: PCP Internal Medicine Adolescent Medicine; Visit Provider Nurse Practitioner Family
DX: R51.9 Headache, unspecified (principal); G89.29 Other chronic pain; F11.11 Opioid abuse, in remission; F12.20 Cannabis dependence, uncomplicated; F14.11 Cocaine abuse, in remission; M54.2 Cervicalgia; R29.2 Abnormal reflex
CPT/HCPCS: 36415; 70544; 70553; 82565; 84520; A9576

== ENCOUNTER → 2023-04-14 14:04 | Outpatient (CLI) | payer OTHER, SELFPAY | PROVIDERS: PCP Internal Medicine Adolescent Medicine; Visit Provider Nurse Practitioner Family | DX: R51.9 Headache, unspecified (principal); G47.30 Sleep apnea, unspecified; R06.83 Snoring | CPT/HCPCS: G0399 ==

== ENCOUNTER → 2023-04-14 14:18 | Outpatient (CLI) | payer OTHER, SELFPAY | DX: R51.9 Headache, unspecified (principal); F11.11 Opioid abuse, in remission; F12.20 Cannabis dependence, uncomplicated; F14.11 Cocaine abuse, in remission; G89.29 Other chronic pain; R29.2 Abnormal reflex; M54.2 Cervicalgia; G47.30 Sleep apnea, unspecified; R06.83 Snoring ==

== ENCOUNTER 2023-08-05 11:23 | Outpatient (CLI) | payer OTHER, SELFPAY ==
--- NOTE | 2023-08-05 11:27 | XR_ITS ---
FINAL REPORT CLINICAL HISTORY: RT HIP PAIN fall x 1 week ago COMPARISON: None FINDINGS: AP and frog leg views of the right hip were obtained. There is no prior exam for comparison. There is no acute fracture or dislocation. Joint space is preserved. Soft tissues are within normal limits. IMPRESSION: No acute osseous abnormality of the right hip. Reviewed, Interpreted and Dictated by Raymond Villatoro MD Transcribed by Amanda Aguirre Authenticated and [facility]
--- NOTE | 2023-08-05 11:27 | XR_ITS ---
FINAL REPORT CLINICAL HISTORY: LOW BACK PAIN fall x 1 week ago COMPARISON: None FINDINGS: 5 views of the lumbar spine were obtained. There is no evidence of fracture or dislocation. The vertebral alignment is normal. Disc spaces are preserved. No paraspinous soft tissue abnormalities identified. IMPRESSION: No acute bony abnormality. Reviewed, Interpreted and Dictated by Raymond Villatoro MD Transcribed by Amanda Aguirre Authenticated and [facility]
== END 2023-08-05 23:59 ==
LOC: RAD 11:23
PROVIDERS: PCP Internal Medicine Adolescent Medicine; Visit Provider Physician Assistant
DX: M25.551 Pain in right hip (principal); M54.50 Low back pain, unspecified
CPT/HCPCS: 72110; 73502

== ENCOUNTER 2023-10-29 18:56 | Emergency (ER) | payer OTHER, SELFPAY ==
[2023-10-29 19:00] VITALS: BP 107/80; PULSE 109; RESP 21; TEMP 36.9; O2SAT 97; BMI 23.3
--- NOTE | 2023-10-29 19:01 | ED_ITS ---
Discharge Plan Disposition Patient Disposition: Home, Self-Care Condition: Fair Prescriptions Prescriptions: New ondansetron HCl 8 mg tablet 8 mg PO Q8H PRN (Reason: nausea and vomiting) 5 Days Qty: 20 0RF No Action atorvastatin [Lipitor] 20 mg Tablet 20 mg PO DAILY loratadine 10 mg tablet 10 mg PO DAILY Referrals Follow up/Referrals: Neel Gale MD [Primary Care Provider] - See instructions Activity Restrictions/Add. Instructions Additional Instructions/Restrictions: Clear liquids, bland diet Clinical Impressions Clinical Impression: Gastroenteritis Stand Alone Forms Stand Alone Forms: Work/School Release Instructions Patient Instructions: DI for Viral Gastroenteritis -- Adult Discharge ED Provider[place] Serene Cab[place] [facility] General Stated complaint: vomitng, diarrhea Time Seen by Provider: 10/29/23 19:13 History of Present Illness Provider Complaint: Vomiting and diarrhea since around 5 am. NOt sure about fever. Not tolerating PO intake. Body aches and chills. Onset (ago): hour(s) (12) Location: abdomen Relieving factors: none Exacerbating factors: none Associated symptoms: nausea/vomiting Treatments prior to arrival: none Related Data Home Medications Medication Instructions Recorded Confirmed atorvastatin 20 mg tablet (Lipitor) 20 mg PO DAILY Cholesterol 12/21/22 10/29/23 loratadine 10 mg tablet 10 mg PO DAILY 10/29/23 10/29/23 Previous Rx's Medication Instructions Recorded ondansetron HCl 8 mg tablet 8 mg PO Q8H PRN nausea and 10/29/23 vomiting 5 days #20 tabs Allergies Allergy/AdvReac Type Severity Reaction Status Date / Time codeine [CODEINE] Allergy Mild NA-NAUSEA Verified 03/22/23 13:32 povidone-iodine Allergy Mild I-RASH Verified 03/22/23 13:32 [From BETADINE] NSAIDS (Non-Steroidal Allergy Unknown AGGRAVATES Verified 03/22/23 13:32 Anti-Inflamma STOMACH [NSAIDS (NON-STEROIDAL ULCER ANTI-INFLAMMA] [facility] Disclaimer: The information contained in this section may have been updated after the patient was seen, as this information can be updated by other users. Medical History (Updated 10/29/23 @ 19:19 by IGGY Baum) Hyperlipidemia Tetrahydrocannabinol (THC) dependence Neck pain Brisk deep tendon reflexes Chronic headache with new features History of opioid abuse History of cocaine abuse History of deviated nasal septum Depression Anxiety History of gastroesophageal reflux (GERD) Urinary tract infection Migraine COPD (chronic obstructive pulmonary disease) Surgical History Hx of vaginal surgery Hx of bladder repair surgery History of hysterectomy History of tubal ligation Family History Other Family history of cancer Family history of diabetes mellitus type II Family history of hyperlipidemia Family history of hypertension Social History (Updated 03/22/23 @ 13:59 by EVELIO Angel) Smoking Status: Light tobacco smoker tobacco type: cigarettes packs per day: 1 alcohol intake: current substance use type: former substance user and marijuana current occupational status: employed Travel in the last 8 weeks: None household members: family housing: house lives independently: No marital status: education level: high school service: No caffeine: Yes special michelle needs: No do you feel safe at home: Yes victim of physical abuse: No victim of emotional abuse: No victim of sexual abuse: No would you like helpful sources: No ROS Obtained: Yes All systems reviewed & no additional complaints except as documented Gastrointestinal Gastrointestingal: Reports diarrhea, loose stools and vomiting Physical Exam General General appearance: alert and in no apparent distress Head Head exam: atraumatic, normocephalic and normal inspection Eye Eye exam: Present normal appearance, PERRL and EOMI ENT ENT exam: Present normal exam, normal oropharynx, mucous membranes moist, TM's normal bilaterally and normal external ear exam Neck Neck exam: Present normal inspection, full ROM and trachea midline; Absent meningismus or lymphadenopathy Chest Chest inspection: Present normal inspection and symmetric chest wall rise; Absent tenderness Respiratory Respiratory exam: Present normal lung sounds bilaterally; Absent respiratory distress Cardiovascular Cardiovascular exam: Present regular rate and normal rhythm; Absent JVD Abdominal Exam Abdominal exam: Present soft and normal bowel sounds; Absent distention, tenderness or guarding Extremities Exam Extremities exam: Present normal inspection, full ROM and normal capillary refill; Absent calf tenderness Back Exam Back exam: Present normal inspection; Absent tenderness Neurological Exam Neurological exam: Present alert and oriented X3 Psychiatric Psychiatric exam: Present normal affect and normal mood Skin Skin exam: Present warm, dry, intact and normal color Lymphatic Lymphatic Findings: no adenopathy Medical Decision Making [facility] Inquiry Pt receiving controlled substance: No
[2023-10-29 19:19] LABS: UTC Influenza A Antigen Negative (Negative)
[2023-10-29] MEDS: ONDANSETRON 4MG ODT 4 MG SL (19:19)
[2023-10-29 19:20] LABS: UTC Influenza B Antigen Negative (Negative)
[2023-10-29 19:28] VITALS: BP 107/80; PULSE 109; RESP 21; TEMP 36.9; O2SAT 97
== END 2023-10-29 19:29 | disposition home or self-care (01) ==
PROVIDERS: Emergency Provider Physician Assistant; PCP Internal Medicine Adolescent Medicine
DX: A08.4 Viral intestinal infection, unspecified (principal); R11.2 Nausea with vomiting, unspecified; R19.7 Diarrhea, unspecified; F17.210 Nicotine dependence, cigarettes, uncomplicated; J44.9 Chronic obstructive pulmonary disease, unspecified; E78.5 Hyperlipidemia, unspecified
CPT/HCPCS: 87804; 99212; 99214; G0463

== ENCOUNTER 2023-11-22 12:50 | Emergency (ER) | payer OTHER, SELFPAY ==
[2023-11-22 12:55] VITALS: BP 121/68; PULSE 84; RESP 18; TEMP 36.8; O2SAT 98; BMI 22.7
--- NOTE | 2023-11-22 13:13 | ED_ITS ---
Discharge Plan Disposition Patient Disposition: Home, Self-Care Condition: Good Prescriptions Prescriptions: New azithromycin [Zithromax] 250 mg tablet 250 mg PO UD DOSE PK Qty: 6 0RF Rx Instructions: Take two (2) tablets today, then one (1) tablet days #2 thru #5 benzonatate 100 mg capsule 100 mg PO TIDP PRN (Reason: Cough) Qty: 30 0RF methylprednisolone 4 mg Tablets,Dose Pack 4 mg PO DIRECTED 6 Days Qty: 21 0RF Rx Instructions: Take 1 pack as directed for 6 days albuterol sulfate [Ventolin HFA] 90 mcg/actuation HFA aerosol inhaler 2 puff inhalation Q6H PRN (Reason: shortness of breath or wheezing) Qty: 6.7 0RF guaifenesin [Mucinex] 600 mg tablet extended release 12hr 600 - 1,200 mg PO BIDP PRN (Reason: Congestion) Qty: 30 0RF No Action atorvastatin [Lipitor] 20 mg Tablet 20 mg PO DAILY loratadine 10 mg tablet 10 mg PO DAILY Referrals Follow up/Referrals: Neel Gale MD [Primary Care Provider] - See instructions Activity Restrictions/Add. Instructions Additional Instructions/Restrictions: Drink plenty of fluids. Take tylenol or ibuprofen for pain or fever. Take the medications as directed. Follow up with your regular doctor. GO TO THE ER FOR ANY WORSENING SYMPTOMS Clinical Impressions Clinical Impression: COPD exacerbation, Acute viral syndrome Sinusitis Qualifiers: Sinusitis location: unspecified location Chronicity: acute Recurrence: non- recurrent Qualified Code(s): J01.90 - Acute sinusitis, unspecified Stand Alone Forms Stand Alone Forms: Work/School Release Instructions Patient Instructions: Chronic Obstructive Pulmonary Disease, DI for Sinusitis, DI for Viral Syndrome Discharge ED Provider: Travis Goldberg [facility] General Stated complaint: congestion, bodyaches, fever Mode of Arrival: Ambulatory Source of Information: Patient Limitations: No Limitations Time Seen by Provider: 11/22/23 13:13 Description of Symptoms (Recalled from Triage Doc. by RN): Pt's symptoms are head congestion, cough, low grade fever, and body aches. HEENT Symptoms (Recalled from RN notes): Yes Resp Symptoms (Recalled from RN notes): No Skin Symptoms (Recalled from RN notes): No MS Symptoms (Recalled from RN notes): No Functional Status (Recalled from RN notes): n/a History of Present Illness Provider Complaint: She states that for the past 4 days she has had worsening sinus and chest congestion, productive cough with yellowish sputum, low grade fever, and malaise. Related Data Home Medications Medication Instructions Recorded Confirmed atorvastatin 20 mg tablet (Lipitor) 20 mg PO DAILY Cholesterol 12/21/22 11/22/23 loratadine 10 mg tablet 10 mg PO DAILY 10/29/23 11/22/23 Previous Rx's Medication Instructions Recorded albuterol sulfate 90 mcg/actuation 2 puff inhalation Q6H PRN 11/22/23 aerosol inhaler (Ventolin HFA) shortness of breath or wheezing #6.7 grams azithromycin 250 mg tablet 250 mg PO UD DOSE PK #6 tabs 11/22/23 (Zithromax) benzonatate 100 mg capsule 100 mg PO TIDP PRN Cough #30 caps 11/22/23 guaifenesin 600 mg tablet, 600 - 1,200 mg (1 - 2 x 600 mg) PO 11/22/23 extended release 12 hr (Mucinex) BIDP PRN Congestion #30 tabs methylprednisolone 4 mg tablets in 4 mg PO DIRECTED 6 days #21 tabs 11/22/23 a dose pack Allergies Allergy/AdvReac Type Severity Reaction Status Date / Time codeine [CODEINE] Allergy Mild NA-NAUSEA Verified 11/22/23 13:04 povidone-iodine Allergy Mild I-RASH Verified 11/22/23 13:04 [From BETADINE] NSAIDS (Non-Steroidal Allergy Unknown AGGRAVATES Verified 11/22/23 13:04 Anti-Inflamma STOMACH [NSAIDS (NON-STEROIDAL ULCER ANTI-INFLAMMA] Worker's Comp Is this a Worker's Comp case?: No [facility] Disclaimer: The information contained in this section may have been updated after the patient was seen, as this information can be updated by other users. Medical History (Updated 11/22/23 @ 13:44 by Travis Goldberg APRN) Hyperlipidemia Tetrahydrocannabinol (THC) dependence Neck pain Brisk deep tendon reflexes Chronic headache with new features History of opioid abuse History of cocaine abuse History of deviated nasal septum Depression Anxiety History of gastroesophageal reflux (GERD) Urinary tract infection Migraine COPD (chronic obstructive pulmonary disease) Surgical History Hx of vaginal surgery Hx of bladder repair surgery History of hysterectomy History of tubal ligation Family History Other Family history of cancer Family history of diabetes mellitus type II Family history of hyperlipidemia Family history of hypertension Social History Smoking Status: Light tobacco smoker tobacco type: cigarettes packs per day: 1 alcohol intake: current substance use type: former substance user and marijuana current occupational status: employed Travel in the last 8 weeks: None household members: family housing: house lives independently: No marital status: education level: high school service: No caffeine: Yes special michelle needs: No do you feel safe at home: Yes victim of physical abuse: No victim of emotional abuse: No victim of sexual abuse: No would you like helpful sources: No ROS Obtained: Yes All systems reviewed & no additional complaints except as documented Constitutional Constitutional: Reports chills and Reports fever(s) Eyes Eyes: Denies eye discharge ENT Ears, Nose, Mouth, and Throat: Reports as per HPI Cardiovascular Cardiovascular: Denies chest pain Respiratory Respiratory: Denies chest congestion and Reports cough Gastrointestinal Gastrointestingal: Reports nausea; Denies abdominal pain, constipation, cr amping, diarrhea or vomiting Musculoskeletal Musculoskeletal: Denies arthralgias Integumentary/Breasts Skin/Breast: Denies rash Neurologic Neurologic: Denies paresthesias Physical Exam General General appearance: alert and in no apparent distress Eye Eye exam: Present normal appearance, PERRL and EOMI ENT ENT exam: Present mucous membranes moist and normal external ear exam Expanded ENT Exam External ear exam: Present normal external inspection TM/Canal exam: Bilateral TM: erythema and bulging Nose exam: Absent sinus tenderness Nasal speculum exam: Bilateral: normal Mouth exam: Present normal external inspection; Absent drooling Teeth exam: Present normal inspection Throat exam: Present tonsillar erythema and tonsillomegaly Neck Neck exam: Present normal inspection, full ROM and trachea midline; Absent tenderness, lymphadenopathy or thyromegaly Chest Chest inspection: Present normal inspection and symmetric chest wall rise; Absent tenderness or rash Respiratory Respiratory exam: Present normal lung sounds bilaterally; Absent respiratory distress, wheezes, stridor or accessory muscle use Cardiovascular Cardiovascular exam: Present regular rate, normal rhythm and normal heart sounds Abdominal Exam Abdominal exam: Present soft; Absent distention, tenderness, guarding, rebound or rigidity Extremities Exam Extremities exam: Present normal inspection, full ROM and normal capillary refill; Absent tenderness or calf tenderness Back Exam Back exam: Present normal inspection and full ROM; Absent tenderness Neurological Exam Neurological exam: Present alert and oriented X3 Psychiatric Psychiatric exam: Present normal affect and normal mood Skin Skin exam: Present warm, dry, intact and normal color Lymphatic Lymphatic Findings: no adenopathy Medical Decision Making Medical Records Medical records reviewed: No I reviewed the patient's medical records. Herbert Inquiry Pt receiving controlled substance: No Vital Signs: 11/22/23 12:55 Temperature 98.2 F Temperature Source Oral Pulse Rate [Right Radial] 84 Respiratory Rate 18 Blood Pressure [Right Arm] 121/68 Blood Pressure Mean [Right Arm] 85 Blood Pressure Source [Right Arm] Automatic Cuff Blood Pressure Position [Right Arm] Supine 02 Sat by Pulse Oximetry 98 Oxygen Delivery Method Room Air Lab Data Lab results reviewed: Yes I reviewed the patient's lab results.
[2023-11-22 13:53] LABS: Coronavirus 19, PCR Not Detected (NotDetected); Influenza A, PCR Not Detected (NotDetected); Influenza B, PCR Not Detected (NotDetected)
[2023-11-22 13:54] VITALS: BP 121/68; PULSE 84; RESP 18; TEMP 36.8; O2SAT 98
== END 2023-11-22 13:54 | disposition home or self-care (01) ==
PROVIDERS: Emergency Provider Nurse Practitioner Family; PCP Internal Medicine Adolescent Medicine
DX: J44.1 Chronic obstructive pulmonary disease with (acute) exacerbation (principal); J01.90 Acute sinusitis, unspecified; B34.9 Viral infection, unspecified; R50.9 Fever, unspecified; R05.9 Cough, unspecified; R09.81 Nasal congestion; F17.210 Nicotine dependence, cigarettes, uncomplicated
CPT/HCPCS: 87636; 99212; 99214; G0463

== ENCOUNTER 2024-01-12 16:55 | Emergency (ER) | payer OTHER, SELFPAY ==
[2024-01-12 16:57] VITALS: BP 105/72; PULSE 69; RESP 13; TEMP 36.6; O2SAT 97; BMI 23.5
--- NOTE | 2024-01-12 17:42 | HMH.EDGENADL ---
Discharge Plan Disposition Patient Disposition: Home, Self-Care Condition: Good Prescriptions Prescriptions: New methocarbamol 750 mg tablet 750 mg PO Q8H PRN (Reason: muscle spasm) Qty: 10 0RF No Action atorvastatin [Lipitor] 20 mg Tablet 20 mg PO DAILY loratadine 10 mg tablet 10 mg PO DAILY azithromycin [Zithromax] 250 mg tablet 250 mg PO UD DOSE PK Qty: 6 0RF Rx Instructions: Take two (2) tablets today, then one (1) tablet days #2 thru #5 benzonatate 100 mg capsule 100 mg PO TIDP PRN (Reason: Cough) Qty: 30 0RF methylprednisolone 4 mg Tablets,Dose Pack 4 mg PO DIRECTED 6 Days Qty: 21 0RF Rx Instructions: Take 1 pack as directed for 6 days albuterol sulfate [Ventolin HFA] 90 mcg/actuation HFA aerosol inhaler 2 puff inhalation Q6H PRN (Reason: shortness of breath or wheezing) Qty: 6.7 0RF guaifenesin [Mucinex] 600 mg tablet extended release 12hr 600 - 1,200 mg PO BIDP PRN (Reason: Congestion) Qty: 30 0RF Referrals Follow up/Referrals: Neel Gale MD [Primary Care Provider] - See instructions Activity Restrictions/Add. Instructions Additional Instructions/Restrictions: Follow-up with your PCP for any worsening signs or symptoms or return to the ER as needed. Clinical Impressions Clinical Impression: Muscle spasm Instructions Patient Instructions: DI for Muscle Spasm Discharge ED Provider: Wesley Montesinos General Adult HPI <IGGY Wyman - Last Filed: 01/12/24 19:37> General Chief complaint: PAIN Stated complaint: left shoulder pain Time Seen by Provider: 01/12/24 17:42 History of Present Illness HPI narrative: Patient presents for right upper back pain that began today while she was working. She states that it is worse with movement better with holding still. There is no trauma it does not radiate she has no focal neurologic deficits. Is located to the midline of her right scapula. Related Data Home Medications Medication Instructions Recorded Confirmed atorvastatin 20 mg tablet (Lipitor) 20 mg PO DAILY Cholesterol 12/21/22 11/22/23 loratadine 10 mg tablet 10 mg PO DAILY 10/29/23 11/22/23 Previous Rx's Medication Instructions Recorded albuterol sulfate 90 mcg/actuation 2 puff inhalation Q6H PRN 11/22/23 aerosol inhaler (Ventolin HFA) shortness of breath or wheezing #6.7 grams azithromycin 250 mg tablet 250 mg PO UD DOSE PK #6 tabs 11/22/23 (Zithromax) benzonatate 100 mg capsule 100 mg PO TIDP PRN Cough #30 caps 11/22/23 guaifenesin 600 mg tablet, 600 - 1,200 mg (1 - 2 x 600 mg) PO 11/22/23 extended release 12 hr (Mucinex) BIDP PRN Congestion #30 tabs methylprednisolone 4 mg tablets in 4 mg PO DIRECTED 6 days #21 tabs 11/22/23 a dose pack methocarbamol 750 mg tablet 750 mg PO Q8H PRN muscle spasm #10 01/12/24 tabs Allergies Allergy/AdvReac Type Severity Reaction Status Date / Time codeine [CODEINE] Allergy Mild NA-NAUSEA Verified 11/22/23 13:04 povidone-iodine Allergy Mild I-RASH Verified 11/22/23 13:04 [From BETADINE] NSAIDS (Non-Steroidal Allergy Unknown AGGRAVATES Verified 11/22/23 13:04 Anti-Inflamma STOMACH [NSAIDS (NON-STEROIDAL ULCER ANTI-INFLAMMA] [facility] <IGGY Wyman - Last Filed: 01/12/24 19:37> [facility] Disclaimer: The information contained in this section may have been updated after the patient was seen, as this information can be updated by other users. Medical History (Updated 01/12/24 @ 19:27 by IGGY Wyman) Hyperlipidemia Tetrahydrocannabinol (THC) dependence Neck pain Brisk deep tendon reflexes Chronic headache with new features History of opioid abuse History of cocaine abuse History of deviated nasal septum Depression Anxiety History of gastroesophageal reflux (GERD) Urinary tract infection Migraine COPD (chronic obstructive pulmonary disease) Surgical History Hx of vaginal surgery Hx of bladder repair surgery History of hysterectomy History of tubal ligation Family History Other Family history of cancer Family history of diabetes mellitus type II Family history of hyperlipidemia Family history of hypertension Social History Smoking Status: Current every day smoker tobacco type: cigarettes packs per day: 1 alcohol intake: current substance use type: former substance user and marijuana current occupational status: employed Travel in the last 8 weeks: None household members: family housing: house lives independently: No marital status: education level: high school service: No caffeine: Yes special michelle needs: No do you feel safe at home: Yes victim of physical abuse: No victim of emotional abuse: No victim of sexual abuse: No would you like helpful sources: No <IGGY Wyman - Last Filed: 01/12/24 19:37> ROS Obtained: Yes Systems reviewed as appropriate & no additional complaints except as documented Physical Exam <IGGY Wyman - Last Filed: 01/12/24 19:37> General General appearance: alert and in no apparent distress Respiratory Respiratory exam: Present normal lung sounds bilaterally Cardiovascular Cardiovascular exam: Present regular rate and normal rhythm Back Exam Back 1 view image: 1. Area of tenderness and knots Neurological Exam Neurological exam: Present alert and oriented X3 Medical Decision Making <IGGY Wyman - Last Filed: 01/12/24 19:37> Medical Records Medical records reviewed: Yes I reviewed the patient's medical records. Herbert Inquiry Pt receiving controlled substance: No Vital Signs: 01/12/24 16:57 01/12/24 18:28 01/12/24 19:36 Temperature 97.9 F 97.9 F Temperature Source Oral Oral Pulse Rate 72 77 Pulse Rate [Left Radial] 69 Respiratory Rate 13 13 17 Blood Pressure 108/70 L 106/72 L Blood Pressure [Right Arm] 105/72 L Blood Pressure Mean [Right Arm] 83 Blood Pressure Source Automatic Cuff Blood Pressure Position Sitting 02 Sat by Pulse Oximetry 97 98 Oxygen Delivery Method Room Air Room Air Room Air Orders (Tests/Meds): ED MEDICATIONS Discontinued Medications Generic Name Dose Route Start Last Admin Trade Name Freq PRN Reason Stop Dose Admin Acetaminophen 1,000 mg 01/12/24 18:08 01/12/24 18:23 Acetaminophen 500mg Tab PO 01/12/24 18:09 1,000 mg ONCE ONE Administration Methocarbamol 500 mg 01/12/24 18:08 01/12/24 18:23 Methocarbamol 500mg Tablet PO 01/12/24 18:09 500 mg ONCE ONE Administration ORDERS Category Date Time Status Chest XR 2 view (NOT portable) [XR chest 2V] Stat Exams 01/12/24 18:00 Completed XR shoulder LT min 2V Stat Exams 01/12/24 18:00 Completed Medical Decision Narrative: In summary patient is a 48-year-old female who presents to the emergency department for evaluation of right upper back pain. Patient is hemodynamically stable upon arrival, afebrile. Physical exam is remarkable for tenderness palpation in the latissimus dorsi and trapezius of the right upper back. No deformities noted. Patient is neurovascular intact distally in the right upper extremity.. Differential diagnosis includes muscle spasm versus muscle tear. Initial workup will be conducted with plain film x-rays. Initial interventions include Toradol Tylenol Robaxin. Initial workup reviewed by me and my informal interpretation shows no acute bony processes.. Upon repeat evaluation patient had resolution of her symptoms and felt comfortable going home. Given this patient is appropriate for discharge with prescription for Robaxin <Wesley Montesinos MD - Last Filed: 01/12/24 22:37> Vital Signs: 01/12/24 16:57 01/12/24 18:28 01/12/24 19:36 Temperature 97.9 F 97.9 F Temperature Source Oral Oral Pulse Rate 72 77 Pulse Rate [Left Radial] 69 Respiratory Rate 13 13 17 Blood Pressure 108/70 L 106/72 L Blood Pressure [Right Arm] 105/72 L Blood Pressure Mean [Right Arm] 83 Blood Pressure Source Automatic Cuff Blood Pressure Position Sitting 02 Sat by Pulse Oximetry 97 98 Oxygen Delivery Method Room Air Room Air Room Air Orders (Tests/Meds): ED MEDICATIONS Discontinued Medications Generic Name Dose Route Start Last Admin Trade Name Faustino PRN Reason Stop Dose Admin Acetaminophen 1,000 mg 01/12/24 18:08 01/12/24 18:23 Acetaminophen 500mg Tab PO 01/12/24 18:09 1,000 mg ONCE ONE Administration Methocarbamol 500 mg 01/12/24 18:08 01/12/24 18:23 Methocarbamol 500mg Tablet PO 01/12/24 18:09 500 mg ONCE ONE Administration ORDERS Category Date Time Status Chest XR 2 view (NOT portable) [XR chest 2V] Stat Exams 01/12/24 18:00 Completed XR shoulder LT min 2V Stat Exams 01/12/24 18:00 Completed Medical Decision Narrative: In summary patient is a 48-year-old female who presents to the emergency department for evaluation of right upper back pain. Patient is hemodynamically stable upon arrival, afebrile. Physical exam is remarkable for tenderness palpation in the latissimus dorsi and trapezius of the right upper back. No deformities noted. Patient is neurovascular intact distally in the right upper extremity.. Differential diagnosis includes muscle spasm versus muscle tear. Initial workup will be conducted with plain film x-rays. Initial interventions include Toradol Tylenol Robaxin. Initial workup reviewed by me and my informal interpretation shows no acute bony processes.. Upon repeat evaluation patient had resolution of her symptoms and felt comfortable going home. Given this patient is appropriate for discharge with prescription for Robaxin I was consulted by the [facility], and we discussed the complexity of the problems being addressed. I approved the treatment and management plan for this patient?s care in the Emergency Department, thus performing a substantive portion of the medical decision making. Wesley Montesinos MD Critical Care <IGGY Wyman - Last Filed: 01/12/24 19:37> Critical Care Time Critical Care Time: No
--- NOTE | 2024-01-12 18:00 | XR_ITS ---
PROCEDURE INFORMATION: Exam: XR Chest Exam date and time: 01/12/2024 6:06 PM Age: 48 years old Clinical indication: Pain; Chest pressure; Additional info: Shoulder pain TECHNIQUE: Imaging protocol: Radiologic exam of the chest. Views: 2 views. COMPARISON: CR XR RIBS LT MIN 3V W CXR1V 06/30/2022 4:55 PM FINDINGS: Lungs: No consolidation. Mild bibasilar atelectasis. Stable right upper lobe calcified granuloma and biapical pleural-parenchymal scarring. Pleural spaces: No pleural effusion. No pneumothorax. Heart/Mediastinum: No cardiomegaly. Bones/joints: No acute findings. IMPRESSION: No acute pulmonary findings.
--- NOTE | 2024-01-12 18:00 | XR_ITS ---
PROCEDURE INFORMATION: Exam: XR Left Shoulder Exam date and time: 01/12/2024 6:07 PM Age: 48 years old Clinical indication: Pain; Shoulder; Left; Additional info: Shoulder pain TECHNIQUE: Imaging protocol: Radiologic exam of the left shoulder. Views: 2 or more views. COMPARISON: CR XR CHEST 2V 01/12/2024 6:06 PM FINDINGS: Bones/joints: No acute fracture or malalignment. Soft tissues: Normal. IMPRESSION: No acute osseous findings.
[2024-01-12] MEDS: ACETAMINOPHEN 500MG TAB 1000 MG PO (18:23)
[2024-01-12] MEDS: METHOCARBAMOL 500MG TABLET 500 MG PO (18:23)
[2024-01-12 18:28] VITALS: BP 108/70; PULSE 72; RESP 13; O2SAT 98
[2024-01-12 19:36] VITALS: BP 106/72; PULSE 77; RESP 17; TEMP 36.6; O2SAT 97
== END 2024-01-12 19:37 | disposition home or self-care (01) ==
PROVIDERS: Emergency Provider Emergency Medicine; PCP Internal Medicine Adolescent Medicine
DX: M25.512 Pain in left shoulder (principal); M62.838 Other muscle spasm
CPT/HCPCS: 71046; 73030; 99283

== ENCOUNTER 2024-08-04 11:34 | Emergency (ER) | payer OTHER, SELFPAY ==
[2024-08-04 12:40] VITALS: BP 109/64; PULSE 105; RESP 20; TEMP 37.2; O2SAT 96; BMI 22.9
--- NOTE | 2024-08-04 12:40 | EXP.UTC ---
Discharge Plan Disposition Patient Disposition: Home, Self-Care Condition: Good Prescriptions Prescriptions: New azithromycin [Zithromax] 250 mg tablet 250 mg PO UD DOSE PK Qty: 6 0RF Rx Instructions: Take two (2) tablets today, then one (1) tablet days #2 thru #5 benzonatate 100 mg capsule 100 mg PO TIDP PRN (Reason: Cough) Qty: 30 0RF methylprednisolone 4 mg Tablets,Dose Pack 4 mg PO DIRECTED 6 Days Qty: 21 0RF Rx Instructions: Take 1 pack as directed for 6 days oseltamivir [Tamiflu] 75 mg capsule 75 mg PO BID 5 Days Qty: 10 0RF No Action atorvastatin [Lipitor] 20 mg Tablet 20 mg PO DAILY methocarbamol 750 mg tablet 750 mg PO Q8H PRN (Reason: muscle spasm) Qty: 10 0RF loratadine 10 mg tablet 10 mg PO DAILY azithromycin [Zithromax] 250 mg tablet 250 mg PO UD DOSE PK Qty: 6 0RF Rx Instructions: Take two (2) tablets today, then one (1) tablet days #2 thru #5 benzonatate 100 mg capsule 100 mg PO TIDP PRN (Reason: Cough) Qty: 30 0RF methylprednisolone 4 mg Tablets,Dose Pack 4 mg PO DIRECTED 6 Days Qty: 21 0RF Rx Instructions: Take 1 pack as directed for 6 days albuterol sulfate [Ventolin HFA] 90 mcg/actuation HFA aerosol inhaler 2 puff inhalation Q6H PRN (Reason: shortness of breath or wheezing) Qty: 6.7 0RF guaifenesin [Mucinex] 600 mg tablet extended release 12hr 600 - 1,200 mg PO BIDP PRN (Reason: Congestion) Qty: 30 0RF Referrals Follow up/Referrals: Kareen Suresh PA [Primary Care Provider] - See instructions Activity Restrictions/Add. Instructions Additional Instructions/Restrictions: Drink plenty of fluids. Take tylenol or ibuprofen for pain or fever. Take the medications as directed. Follow up with your regular doctor. GO TO THE ER FOR ANY WORSENING SYMPTOMS Clinical Impressions Clinical Impression: COPD exacerbation, Influenza A Stand Alone Forms Stand Alone Forms: Work/School Release Instructions Patient Instructions: Chronic Obstructive Pulmonary Disease, DI for Viral Syndrome Print Language Print Language: [place] Discharge ED Provider: Travis Goldberg [facility] HPI General Stated complaint: fever, vomiting Time Seen by Provider: 08/04/24 12:39 Related Data Home Medications ?Medication ?Instructions ?Recorded ?Confirmed atorvastatin 20 mg tablet (Lipitor) 20 mg PO DAILY Cholesterol 12/21/22 11/22/23 loratadine 10 mg tablet 10 mg PO DAILY 10/29/23 11/22/23 Previous Rx's ?Medication ?Instructions ?Recorded albuterol sulfate 90 mcg/actuation 2 puff inhalation Q6H PRN 11/22/23 aerosol inhaler (Ventolin HFA) shortness of breath or wheezing #6.7 grams azithromycin 250 mg tablet 250 mg PO UD DOSE PK #6 tabs 11/22/23 (Zithromax) benzonatate 100 mg capsule 100 mg PO TIDP PRN Cough #30 caps 11/22/23 guaifenesin 600 mg tablet, 600 - 1,200 mg (1 - 2 x 600 mg) PO 11/22/23 extended release 12 hr (Mucinex) BIDP PRN Congestion #30 tabs methylprednisolone 4 mg tablets in 4 mg PO DIRECTED 6 days #21 tabs 11/22/23 a dose pack methocarbamol 750 mg tablet 750 mg PO Q8H PRN muscle spasm #10 01/12/24 tabs azithromycin 250 mg tablet 250 mg PO UD DOSE PK #6 tabs 08/04/24 (Zithromax) benzonatate 100 mg capsule 100 mg PO TIDP PRN Cough #30 caps 08/04/24 methylprednisolone 4 mg tablets in 4 mg PO DIRECTED 6 days #21 tabs 08/04/24 a dose pack oseltamivir 75 mg capsule (Tamiflu) 75 mg PO BID 5 days #10 caps 08/04/24 Allergies Allergy/AdvReac Type Severity Reaction Status Date / Time codeine (CODEINE) Allergy Mild NA-NAUSEA Verified 11/22/23 13:04 povidone-iodine (From Allergy Mild I-RASH Verified 11/22/23 13:04 BETADINE) NSAIDS (Non-Steroidal Allergy Unknown AGGRAVATES Verified 11/22/23 13:04 Anti-Inflamma (NSAIDS STOMACH (NON-STEROIDAL ANTI-INFLAMMA) [facility] Disclaimer: The information contained in this section may have been updated after the patient was seen, as this information can be updated by other users. Medical History (Updated 08/04/24 @ 16:01 by Travis Goldberg APRN) Hyperlipidemia Tetrahydrocannabinol (THC) dependence Neck pain Brisk deep tendon reflexes Chronic headache with new features History of opioid abuse History of cocaine abuse History of deviated nasal septum Depression Anxiety History of gastroesophageal reflux (GERD) Urinary tract infection Migraine COPD (chronic obstructive pulmonary disease) Surgical History Hx of vaginal surgery Hx of bladder repair surgery History of hysterectomy History of tubal ligation Family History Other Family history of cancer Family history of diabetes mellitus type II Family history of hyperlipidemia Family history of hypertension Social History Smoking Status: Current every day smoker tobacco type: cigarettes packs per day: 1 alcohol intake: current substance use type: former substance user and marijuana current occupational status: employed Travel in the last 8 weeks: None household members: family housing: house lives independently: No marital status: education level: high school service: No caffeine: Yes special michelle needs: No do you feel safe at home: Yes victim of physical abuse: No victim of emotional abuse: No victim of sexual abuse: No would you like helpful sources: No Have you lived/traveled outside [place] in past 30 days?: No Contact w/someone who lives/traveled outside US past 30 days?: No Exposure to someone with infectious disease in past 14 days?: No Do you have a fever (greater than 100.4 F or 38 C)?: Yes Have you tested positive for COVID-19: No Exposed to someone with COVID-19 in past 14 days?: No Do you have a sore throat?: No Do you have a cough?: No Do you have any weakness?: No Do you have any diarrhea?: No Are you experiencing any unusual bleeding?: No Do you have any muscle aches/pain?: No Do you have any abdominal pain?: No Are you experiencing loss of taste or smell?: No ROS Obtained: Yes All systems reviewed & no additional complaints except as documented Constitutional Constitutional: Reports chills and Reports fever(s) Eyes Eyes: Denies eye discharge ENT Ears, Nose, Mouth, and Throat: Reports as per HPI Cardiovascular Cardiovascular: Denies chest pain Respiratory Respiratory: Denies chest congestion and Reports cough Gastrointestinal Gastrointestingal: Reports nausea; Denies abdominal pain, constipation, cramping, diarrhea or vomiting Musculoskeletal Musculoskeletal: Denies arthralgias Integumentary/Breasts Skin/Breast: Denies rash Neurologic Neurologic: Denies paresthesias Physical Exam General General appearance: alert and in no apparent distress Head Head exam: atraumatic, normocephalic and normal inspection Eye Eye exam: Present normal appearance, PERRL and EOMI ENT ENT exam: Present normal exam, normal oropharynx, mucous membranes moist, TM's normal bilaterally and normal external ear exam Neck Neck exam: Present normal inspection, full ROM and trachea midline; Absent meningismus or lymphadenopathy Chest Chest inspection: Present normal inspection and symmetric chest wall rise; Absent tenderness Respiratory Respiratory exam: Present normal lung sounds bilaterally; Absent respiratory distress Cardiovascular Cardiovascular exam: Present regular rate and normal rhythm; Absent JVD Abdominal Exam Abdominal exam: Present soft and normal bowel sounds; Absent distention, tenderness or guarding Extremities Exam Extremities exam: Present normal inspection, full ROM and normal capillary refill; Absent calf tenderness Back Exam Back exam: Present normal inspection; Absent tenderness Neurological Exam Neurological exam: Present alert and oriented X3 Psychiatric Psychiatric exam: Present normal affect and normal mood Skin Skin exam: Present warm, dry, intact and normal color Lymphatic Lymphatic Findings: no adenopathy Medical Decision Making Medical Records Medical records reviewed: No I reviewed the patient's medical records. Screening: Per USPSTF and CDC recommendations, given the prevalence of disease in our region, it is our hospital?s policy to screen for HIV and viral Hepatitis for all patients aged 18 and over and those with ongoing risk factors. Herbert Inquiry Pt receiving controlled substance: No Lab Data Lab results reviewed: Yes I reviewed the patient's lab results. Radiology Data #1: Image(s): Chest Image Reviewed: Yes I reviewed the patient's radiology image and Yes I have reviewed radiologist's interpretation Preliminary Findings: No Fracture Seen Accession No. : [id number] Patient Name / ID : Maco Gordon / [id number] Exam Date : 08/04/2024 13:53:45 ( Final ) Study Comment : Sex / Age : F / 49Y Creator : MITRA VILLATORO Dictator : Salesperson Parts : Director Of Human Resources : MITRA VILLATORO Approver2 : Report Date : 08/04/2024 14:39:54 My Comment : FINAL REPORT CLINICAL HISTORY: cough, congestion COMPARISON: 06/30/2022 FINDINGS: CHEST 2 VIEWS PA AND LATERAL The heart is normal in size. The mediastinum is unremarkable. There is a calcified granuloma at the right apex. The lungs are otherwise clear. There is no pneumothorax. IMPRESSION: No acute process. Reviewed, Interpreted and Dictated by Mitra Villatoro MD Transcribed by Dory Cr Authenticated and [facility]
[2024-08-04 12:49] LABS: UTC Influenza A Antigen Negative (Negative)
[2024-08-04 12:50] LABS: UTC Influenza B Antigen Negative (Negative)
--- NOTE | 2024-08-04 13:25 | XR_ITS ---
FINAL REPORT CLINICAL HISTORY: cough, congestion COMPARISON: 06/30/2022 FINDINGS: CHEST 2 VIEWS PA AND LATERAL The heart is normal in size. The mediastinum is unremarkable. There is a calcified granuloma at the right apex. The lungs are otherwise clear. There is no pneumothorax. IMPRESSION: No acute process. Reviewed, Interpreted and Dictated by Raymond Villatoro MD Transcribed by Dory Cr Authenticated and [facility]
[2024-08-04 14:15] VITALS: BP 109/64; PULSE 105; RESP 20; TEMP 37.2; O2SAT 96
[2024-08-04 14:24] LABS: Coronavirus 19, PCR Not Detected (NotDetected); Influenza B, PCR Not Detected (NotDetected)
[2024-08-04 15:14] LABS: Influenza A, PCR Detected (NotDetected)
== END 2024-08-04 14:20 | disposition home or self-care (01) ==
PROVIDERS: Emergency Provider Nurse Practitioner Family; PCP Physician Assistant
DX: J44.1 Chronic obstructive pulmonary disease with (acute) exacerbation (principal); J10.1 Influenza due to other identified influenza virus with other respiratory manifestations
CPT/HCPCS: 71046; 87636; 87804; 99214; G0381

== ENCOUNTER 2024-11-03 14:43 | Outpatient (CLI) | payer OTHER, SELFPAY ==
--- NOTE | 2024-11-03 14:48 | MM_ITS ---
PROCEDURE INFORMATION: Exam: MG Bilateral Screening 3D Mammography Exam date and time: 11/03/2024 2:57 PM Age: 49 years old Clinical indication: Screening. No family history of breast cancer. TECHNIQUE: Imaging protocol: Bilateral Screening tomosynthesis and 2D mammography including computer-aided detection (CAD) when performed. COMPARISON: 1. MG MM DIG SCREENING MAMM BI W/CAD 11/04/2022 8:26 AM 2. MG DMSB DIG MAMM-SCREEN MIRA W/CAD 08/24/2016 8:59 AM FINDINGS: MAMMOGRAPHY: Breast composition: There are scattered areas of fibroglandular density. Mass: None. Architectural distortion: None. Calcifications: No suspicious calcifications. Asymmetric density: None. Skin thickening: None. Axillary adenopathy: None. IMPRESSION: No mammographic evidence of malignancy. Annual screening is recommended unless otherwise clinically indicated. ASSESSMENT: BI-RADS Category 1: Negative.
--- NOTE | 2024-11-03 14:49 | CT_ITS ---
FINAL REPORT CLINICAL HISTORY: SCREENING, current smoker, 1ppd for 30 years FINDINGS: Axial images were obtained from the lung apex to the mid abdomen by computed tomography. Low-dose protocol was utilized. CTDl vol(mGy): 2.90 DLP (mGy-cm): 107.33 FINDINGS: There is no axillary adenopathy. There are calcified subcarinal and right paratracheal lymph nodes. The heart size is normal. There is no pericardial or pleural effusion. Limited images of the upper abdomen are unremarkable. Lung window images demonstrate a 5 mm noncalcified nodule in the right lower lobe best seen on image 54 of series 3. Calcified granulomas are seen in the right upper lobe. IMPRESSION: Lung RADS category 2. Recommend 12 month follow-up low-dose chest CT. Reviewed, Interpreted and Dictated by Raymond Villatoro MD Transcribed by Sharri Orantes Authenticated and [facility]
== END 2024-11-03 23:59 | disposition home or self-care (01) ==
LOC: RAD 14:44
PROVIDERS: PCP Physician Assistant; Visit Provider Physician Assistant
DX: Z12.31 Encounter for screening mammogram for malignant neoplasm of breast (principal); Z87.891 Personal history of nicotine dependence
CPT/HCPCS: 71271; 77063; 77067